=== PATIENT | female | born 1970 ===

== ENCOUNTER 2018-09-24 16:00 | Emergency (ER) | payer OTHER ==
[~2018-09-24] VITALS: Ht 167.6 cm; Wt 63.5 kg
[2018-09-24] MEDS ORDERED: CEFADROXIL500 MG PO (23:31)
== END 2018-09-25 00:43 | disposition home or self-care (01) ==
LOC: ER 16:00
DX: R20.0 Anesthesia of skin (principal); N39.0 Urinary tract infection, site not specified